=== PATIENT | male | born 1960 | race Caucasian/White ===

== ENCOUNTER 2017-01-24 09:18 | Inpatient (IN) | payer BC ==
[2017-01-24] MEDS ORDERED: Sodium Chloride 0.9% 1,000 ML IV ONE (09:44)
[2017-01-24] MEDS ORDERED: Morphine 2 MG/ML Syringe IVPUSH ONE (09:44)
[2017-01-24] MEDS ORDERED: Sodium Chloride 0.9% 2.5 ML Syringe FLUSH PRN (09:44)
[2017-01-24] MEDS ORDERED: Sodium Chloride 0.9% 10 ML Syringe FLUSH PRN (09:44)
[2017-01-24] MEDS ORDERED: Ondansetron 4 MG/2 ML SDV IVPUSH ONE (09:44)
--- NOTE | 2017-01-24 09:48 | EDM.PDOC ---
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 The patient states he has had 2-5 stools over the last 2 days which are soft and mushy but not watery and they're not black or bloody. The patient says that his pain is crampy in character and is more at the local area but does radiate more to the right upper abdominal area. He's had no urinary complaints no fevers no chills no chest pain and no shortness of breath. He has had nausea and vomiting which started over the last 12-24 hours. Review of systems: As per history of present illness and below otherwise all systems reviewed and negative. Past medical history: As per history of present illness and as reviewed below otherwise noncontributory. Surgical history: As per history of present illness and as reviewed below otherwise noncontributory. Social history: No reported history of drug or alcohol abuse. Family history: As per history of present illness and as reviewed below otherwise noncontributory. Physical exam: General: Well-developed well-nourished male who is nontoxic and mildly over weight and vital signs of the note by me HEENT: Atraumatic, normocephalic, pupils reactive, negative for conjunctival pallor or scleral icterus, mucous membranes tacky, throat clear, neck supple, nontender, trachea midline. Lungs: Clear to auscultation, breath sounds equal bilaterally, chest nontender. Heart: S1S2, regular, negative for clicks, rubs, or JVD. Abdomen: Soft, nondistended, bowel sounds are slightly hypoactive, there is mild diffuse tenderness at the periumbilical area and in the surrounds but does not localize right or left high or low on my evaluation there is no rebound or guarding. There is a midline ventral hernia that is appreciated that is somewhat tender and firm. Negative for masses or hepatosplenomegaly. Negative for costovertebral tenderness. Genitourinary: Deferred. Rectal: Deferred. Extremities: Atraumatic, negative for cords or calf pain. Neurovascular unremarkable. Neuro: Awake, alert, oriented. Cranial nerves II through XII unremarkable. Cerebellum unremarkable. Motor and sensory unremarkable throughout. Exam nonfocal. Diagnostics: CBC CMP amylase lipase lactic acid UA and CT scan of the abdomen and pelvis Therapeutics: IV fluids morphine Zofran Is noted the patient refused the morphine for pain and says that the pain is tolerable I discussed all testing results with the patient and the plan for admission for bowel rest for a partial small bowel obstruction. I discussed the case with Dr. Bee our surgeon as well as Dr. Roblero at 12:[address] Roblero accepts the patient for inpatient admission and Dr. Bee will be available as needed Impression: small bowel obstruction Definitive disposition and diagnosis as appropriate pending reevaluation and review of above. Abdominal Pain Score (Numeric/FACES): 5 - Related Data Allergies Allergy/AdvReac Type Severity Reaction Status Date / Time lisinopril Allergy Numbness Verified 01/24/17 10:04 Home Meds: Home Meds Levothyroxine 112 mcg PO ACBRK 03/16/14 [History] Losartan/Hydrochlorothiazide [Losartan-HCTZ 50-12.5 MG] 1 tab PO DAILY 02/25/15 [History] Omeprazole 20 mg PO DAILY 07/16/16 [History] Potassium Chloride [Potassium Chloride] 1 dose PO DAILY 07/16/16 [History] Iron Polysaccharide Complex [Ferric X-150] 1 tab PO DAILY 01/24/17 [History] Sucralfate 1 gm PO DAILY 01/24/17 [History] Past Medical History Cardiovascular History: Reports: Hypertension Gastrointestinal History: Reports: Cholelithiasis, Gastritis, GERD, Other (see below) Other Gastrointestinal History: Mcnamara's esophagus - Past Surgical History HEENT Surgical History: Reports: Tonsillectomy GI Surgical History: Reports: Cholecystectomy, Farooq fundoplication, Other ( see below) Other GI Surgeries/Procedures: Bile Duct Reconstruction Social & Family History - Family History Family Medical History: Noncontributory - Tobacco Use Smoking Status *Q: Never Smoker Second Hand Smoke Exposure: No - Alcohol Use Days Per Week of Alcohol Use: 0 - Recreational Drug Use Recreational Drug Use: No ED ROS GENERAL - Review of Systems Review Of Systems: ROS reveals no pertinent complaints other than HPI. ED EXAM, GENERAL - Physical Exam Exam: See Below (See dictation) Course - Vital Signs Last Recorded V/S: Last Vital Signs Temp 36.1 C 01/24/17 09:27 Pulse 110 H 01/24/17 09:27 Resp 16 01/24/17 09:27 BP 145/96 H 01/24/17 09:27 Pulse Ox 98 01/24/17 09:27 - Orders/Labs/Meds Orders: Active Orders 24 hr Category Date Time Status Patient Status [ADT] Stat ADT 01/24/17 12:11 Ordered Abdomen Pelvis w Cont [CT] Stat Exams 01/24/17 09:44 Taken Dextrose 5%-1/2 Normal Saline @ 150 MLS/HR(1000ml) Med 01/24/17 12:15 Ordered Dextrose 5%-0.45% NaCl [Dextrose 5%-1/2 NS] 1,000 ml IV ASDIRECTED Sodium Chloride 0.9% [Saline Flush] Med 01/24/17 09:44 Active 10 ml FLUSH ASDIRECTED PRN Sodium Chloride 0.9% [Saline Flush] Med 01/24/17 09:44 Active 2.5 ml FLUSH ASDIRECTED PRN Saline Lock Insert [OM.PC] Stat Oth 01/24/17 09:43 Ordered Medication Orders Sodium Chloride (Saline Flush) 10 ml FLUSH ASDIRECTED PRN PRN Reason: Keep Vein Open Last Admin: 01/24/17 09:56 Dose: 10 ml Sodium Chloride (Saline Flush) 2.5 ml FLUSH ASDIRECTED PRN PRN Reason: Keep Vein Open Last Admin: 01/24/17 09:56 Dose: 2.5 ml Labs: Laboratory Tests 01/24/17 01/24/17 01/24/17 Range/Units 10:09 10:09 10:09 WBC 13.64 H (4.0-11.0) K/uL RBC 5.70 (4.50-5.90) M/uL Hgb 14.4 (13.0-17.0) g/dL Hct 44.9 (38.0-50.0) % MCV 78.8 L (80.0-98.0) fL MCH 25.3 L (27.0-32.0) pg MCHC 32.1 (31.0-37.0) g/dL RDW Std Deviation 42.6 (28.0-62.0) fl RDW Coeff of Matthieu 15 (11.0-15.0) % Plt Count 297 (150-400) K/uL MPV 9.60 (7.40-12.00) fL Neut % (Auto) 90.7 H (48.0-80.0) % Lymph % (Auto) 4.5 L (16.0-40.0) % Ector % (Auto) 4.5 (0.0-15.0) % Eos % (Auto) 0.1 (0.0-7.0) % Baso % (Auto) 0.2 (0.0-1.5) % Neut # 12.4 H (1.4-5.7) K/uL Lymph # 0.6 (0.6-2.4) K/uL Ector # 0.6 (0.0-0.8) K/uL Eos # 0.0 (0.0-0.7) K/uL Baso # 0.0 (0.0-0.1) K/uL Nucleated RBC % 0.0 /100WBC Nucleated RBCs # 0 K/uL Lactate 1.7 (0.20-2.00) mmol/L Sodium 143 (136-146) mmol/L Potassium 4.0 (3.5-5.1) mmol/L Chloride 109 (98-110) mmol/L Carbon Dioxide 25 (21-31) mmol/L BUN 16 (6.0-23.0) mg/dL Creatinine 0.9 (0.6-1.5) mg/dL Est Cr Clr Drug Dosing 83.69 mL/min Estimated GFR (MDRD) > 60.0 ml/min Glucose 117 H (60-110) mg/dL Calcium 9.6 (8.8-10.8) mg/dL Total Bilirubin 1.0 (0.1-1.5) mg/dL AST 34 (5-40) IU/L ALT 59 H (8-54) IU/L Alkaline Phosphatase 165 H (40-150) Total Protein 7.9 (6.0-8.0) g/dL Albumin 4.3 (3.5-5.0) g/dL Globulin 3.6 H (2.0-3.5) g/dL Albumin/Globulin Ratio 1.2 L (1.3-2.8) Amylase 26 (10-90) U/L Lipase 21 (7-80) U/L Urine Color Urine Appearance Urine pH (5.0-8.0) Ur Specific Gardner (1.001-1.035) Urine Protein (NEGATIVE) mg/dL Urine Glucose (UA) (NEGATIVE) mg/dL Urine Ketones (NEGATIVE) mg/dL Urine Occult Blood (NEGATIVE) Urine Nitrite (NEGATIVE) Urine Bilirubin (NEGATIVE) Urine Urobilinogen (<2.0) EU/dL Ur Leukocyte Esterase (NEGATIVE) Urine RBC (0-2/HPF) Urine WBC (0-5/HPF) Ur Epithelial Cells (NONE-FEW) Urine Bacteria (NEGATIVE) 01/24/17 Range/Units 11:20 WBC (4.0-11.0) K/uL RBC (4.50-5.90) M/uL Hgb (13.0-17.0) g/dL Hct (38.0-50.0) % MCV (80.0-98.0) fL MCH (27.0-32.0) pg MCHC (31.0-37.0) g/dL RDW Std Deviation (28.0-62.0) fl RDW Coeff of Matthieu (11.0-15.0) % Plt Count (150-400) K/uL MPV (7.40-12.00) fL Neut % (Auto) (48.0-80.0) % Lymph % (Auto) (16.0-40.0) % Ector % (Auto) (0.0-15.0) % Eos % (Auto) (0.0-7.0) % Baso % (Auto) (0.0-1.5) % Neut # (1.4-5.7) K/uL Lymph # (0.6-2.4) K/uL Ector # (0.0-0.8) K/uL Eos # (0.0-0.7) K/uL Baso # (0.0-0.1) K/uL Nucleated RBC % /100WBC Nucleated RBCs # K/uL Lactate (0.20-2.00) mmol/L Sodium (136-146) mmol/L Potassium (3.5-5.1) mmol/L Chloride (98-110) mmol/L Carbon Dioxide (21-31) mmol/L BUN (6.0-23.0) mg/dL Creatinine (0.6-1.5) mg/dL Est Cr Clr Drug Dosing mL/min Estimated GFR (MDRD) ml/min Glucose (60-110) mg/dL Calcium (8.8-10.8) mg/dL Total Bilirubin (0.1-1.5) mg/dL AST (5-40) IU/L ALT (8-54) IU/L Alkaline Phosphatase (40-150) Total Protein (6.0-8.0) g/dL Albumin (3.5-5.0) g/dL Globulin (2.0-3.5) g/dL Albumin/Globulin Ratio (1.3-2.8) Amylase (10-90) U/L Lipase (7-80) U/L Urine Color YELLOW Urine Appearance CLEAR Urine pH 6.0 (5.0-8.0) Ur Specific Gardner <= 1.005 (1.001-1.035) Urine Protein NEGATIVE (NEGATIVE) mg/dL Urine Glucose (UA) NEGATIVE (NEGATIVE) mg/dL Urine Ketones NEGATIVE (NEGATIVE) mg/dL Urine Occult Blood NEGATIVE (NEGATIVE) Urine Nitrite NEGATIVE (NEGATIVE) Urine Bilirubin NEGATIVE (NEGATIVE) Urine Urobilinogen 0.2 (<2.0) EU/dL Ur Leukocyte Esterase NEGATIVE (NEGATIVE) Urine RBC NONE SEEN (0-2/HPF) Urine WBC 0-1 (0-5/HPF) Ur Epithelial Cells RARE (NONE-FEW) Urine Bacteria RARE (NEGATIVE) Meds: Medications Generic Name Dose Route Start Last Admin Trade Name Freq PRN Reason Stop Dose Admin Sodium Chloride 10 ml 01/24/17 09:44 01/24/17 09:56 Saline Flush FLUSH 10 ml ASDIRECTED PRN Administration Keep Vein Open Sodium Chloride 2.5 ml 01/24/17 09:44 01/24/17 09:56 Saline Flush FLUSH 2.5 ml ASDIRECTED PRN Administration Keep Vein Open Discontinued Medications Generic Name Dose Route Start Last Admin Trade Name Freq PRN Reason Stop Dose Admin Sodium Chloride 1,000 mls @ 999 mls/hr 01/24/17 09:44 01/24/17 09:56 Normal Saline IV 01/24/17 10:44 999 mls/hr STAT ONE Administration Iopamidol 100 ml 01/24/17 11:12 01/24/17 11:14 Isovue-370 (76%) IVPUSH 01/24/17 11:13 100 ml ONETIME STA Administration Morphine Sulfate 4 mg 01/24/17 09:44 01/24/17 09:56 Morphine IVPUSH 01/24/17 09:45 Not Given ONETIME ONE Ondansetron HCl 4 mg 01/24/17 09:44 01/24/17 09:56 Zofran IVPUSH 01/24/17 09:45 4 mg ONETIME ONE Administration Departure - Departure Time of Disposition: 12:14 Disposition: Admitted As Inpatient 67 Condition: good Clinical Impression: Small bowel obstruction Forms: ED Department Discharge - My Orders Last 24 Hours: My Active Orders 01/24/17 09:43 Saline Lock Insert [OM.PC] Stat 01/24/17 09:44 Abdomen Pelvis w Cont [CT] Stat Sodium Chloride 0.9% [Saline Flush] 10 ml FLUSH ASDIRECTED PRN Sodium Chloride 0.9% [Saline Flush] 2.5 ml FLUSH ASDIRECTED PRN 01/24/17 12:11 Patient Status [ADT] Stat 01/24/17 12:15 Dextrose 5%-1/2 Normal Saline @ 150 MLS/HR(1000ml) Dextrose 5%-0.45% NaCl [ Dextrose 5%-1/2 NS] 1,000 ml IV ASDIRECTED - Assessment/Plan Last 24 Hours: My Active Orders 01/24/17 09:43 Saline Lock Insert [OM.PC] Stat 01/24/17 09:44 Abdomen Pelvis w Cont [CT] Stat Sodium Chloride 0.9% [Saline Flush] 10 ml FLUSH ASDIRECTED PRN Sodium Chloride 0.9% [Saline Flush] 2.5 ml FLUSH ASDIRECTED PRN 01/24/17 12:11 Patient Status [ADT] Stat 01/24/17 12:15 Dextrose 5%-1/2 Normal Saline @ 150 MLS/HR(1000ml) Dextrose 5%-0.45% NaCl [ Dextrose 5%-1/2 NS] 1,000 ml IV ASDIRECTED
[2017-01-24 10:41] LABS: CHLORIDE,CL 109 mmol/L (98-110); SODIUM,NA 143 mmol/L (136-146)
[2017-01-24] MEDS ORDERED: Iopamidol 755 Mg/ML 100 ML Bottle IVPUSH STA (11:12)
[2017-01-24] MEDS ORDERED: Dextrose 5%-0.45% NaCl 1,000 ML IV SCH (12:15)
[2017-01-24] MEDS ORDERED: Promethazine 25 MG/ML SDV IM PRN (13:24)
[2017-01-24] MEDS ORDERED: Ondansetron 4 MG/2 ML SDV IVPUSH PRN (13:24)
--- NOTE | 2017-01-24 13:26 | PCM.CONS ---
H&P History of Present Illness - General Date of Service: 01/24/17 Admit Problem/Dx: Partial small bowel obstruction Source of Information: Patient History Limitations: Reports: No limitations - History of Present Illness Initial Comments - Free Text/Narative: Patient is a 56 yo male who presents with nausea and vomiting associated wtih abdominal pain over the last day. His past surgical history is significant for a common bile duct injury s/p hepaticojejunostomy and Barretts esophagus s/p mitchell. He has been having intermittent bouts of "stomach issues" since November which he felt were due to viral illness. He has never had the symptoms he has today. He was out caring for calves when he started having nausea, sharp generalized abdominal pain, bloating, diarrhea and vomiting. He threw up three times and the last episode was bilious. He denies fevers, chills, or any abdominal pain at this point in time. He presented to the ED. A CT of the abdomen was performed that showed a small bowel obstruction with a transition point in the mid-/distal small bowel. He has a small incisional hernia as well along the superior ventral midline that contains fat. He states that his pain is not located there. Abdominal Pain Score (Numeric/FACES): 5 - Related Data Allergies/Adverse Reactions: Allergies Allergy/AdvReac Type Severity Reaction Status Date / Time lisinopril Allergy Numbness Verified 01/24/17 10:04 Home Medications: Home Meds Levothyroxine 112 mcg PO ACBRK 03/16/14 [History] Losartan/Hydrochlorothiazide [Losartan-HCTZ 50-12.5 MG] 1 tab PO DAILY 02/25/15 [History] Omeprazole 20 mg PO DAILY 07/16/16 [History] Potassium Chloride [Potassium Chloride] 1 dose PO DAILY 07/16/16 [History] Iron Polysaccharide Complex [Ferric X-150] 1 tab PO DAILY 01/24/17 [History] Sucralfate 1 gm PO DAILY 01/24/17 [History] Past Medical History - Past Health History Medical/Surgical History: Denies Medical/Surgical History (Hypothyroidism, HTN. Surgical history as noted in HPI.) HEENT History: Reports: None Cardiovascular History: Reports: Hypertension Respiratory History: Reports: None Gastrointestinal History: Reports: Cholelithiasis, Gastritis, GERD, Other (see below) Other Gastrointestinal History: Mcnamara's esophagus Genitourinary History: Reports: None Musculoskeletal History: Reports: None Neurological History: Reports: None Psychiatric History: Reports: None Endocrine/Metabolic History: Reports: None Hematologic History: Reports: None Immunologic History: Reports: None Oncologic (Cancer) History: Reports: None Dermatologic History: Reports: None - Infectious Disease History Infectious Disease History: Reports: None - Past Surgical History HEENT Surgical History: Reports: Tonsillectomy GI Surgical History: Reports: Cholecystectomy, Mitchell fundoplication, Other ( see below) Other GI Surgeries/Procedures: Bile Duct Reconstruction Social & Family History - Family History Family Medical History: Noncontributory - Tobacco Use Smoking Status *Q: Never Smoker Second Hand Smoke Exposure: No - Caffeine Use Caffeine Use: Reports: Coffee - Alcohol Use Days Per Week of Alcohol Use: 0 - Recreational Drug Use Recreational Drug Use: No H&P Review of Systems - Review of Systems: Review Of Systems: ROS reveals no pertinent complaints other than HPI. Exam - Exam Exam: See Below - Vital Signs Vital Signs: Last Vital Signs Temp 36.1 C 01/24/17 09:27 Pulse 101 H 01/24/17 12:23 Resp 18 01/24/17 12:23 BP 144/90 H 01/24/17 12:23 Pulse Ox 97 01/24/17 12:23 Weight: 106.6 kg - Exam General: alert, oriented, cooperative HEENT: Conjunctiva clear, Mucosa moist & pink Lungs: Normal respiratory effort Cardiovascular: regular rate Abdomen: soft, other (nontender, mild distension, small incisional hernia superior from the umbilicus ) - Patient Data Result Diagrams: 01/24/17 10:09 01/24/17 10:09 Consult PN Assessment/Plan Procedures: Procedures ASSAY OF FERRITIN (09/09/16) ASSAY OF FREE TESTOSTERONE (09/09/16) ASSAY OF LACTIC ACID (02/25/15) ASSAY OF MAGNESIUM (07/16/16) ASSAY OF TOTAL TESTOSTERONE (09/09/16) ASSAY OF TROPONIN QUANT (07/16/16) ASSAY THYROID STIM HORMONE (08/08/16) BLOOD CULTURE FOR BACTERIA (02/25/15) CHEST X-RAY 1 VIEW FRONTAL (07/16/16) COMPLETE CBC AUTOMATED (12/22/16) COMPLETE CBC W/AUTO DIFF WBC (08/08/16) COMPREHEN METABOLIC PANEL (08/08/16) CREATINE MB FRACTION (07/16/16) CULTURE SCREEN ONLY (02/25/15) ECHO EXAM OF ABDOMEN (06/04/15) ELECTROCARDIOGRAM TRACING (07/16/16) EMERGENCY DEPT VISIT (07/16/16) EMERGENCY DEPT VISIT (02/25/15) EMERGENCY DEPT VISIT (03/16/14) EMERGENCY DEPT VISIT (03/16/14) HYDRATE IV INFUSION ADD-ON (02/25/15) HYDRATION IV INFUSION INIT (02/25/15) INFLUENZA ASSAY W/OPTIC (02/25/15) INTRINSIC FACTOR ANTIBODY (07/17/16) IRON BINDING TEST (12/22/16) LIPID PANEL (08/08/16) METABOLIC PANEL TOTAL CA (02/25/15) OCCULT BLD FECES 1-3 TESTS (06/03/16) ORGANIC ACID SINGLE QUANT (07/18/16) PROTHROMBIN TIME (07/16/16) ROUTINE VENIPUNCTURE (12/22/16) STREP A AG IA (02/25/15) THER/PROPH/DIAG IV INF INIT (09/12/16) URINALYSIS AUTO W/SCOPE (02/25/15) VITAMIN B-12 (07/17/16) (1) Small bowel obstruction SNOMED Code(s): 574083491 Code(s): K56.69 - OTHER INTESTINAL OBSTRUCTION Current Visit: Yes Problem List Initiated/Reviewed/Updated: Yes Plan: I explained to the patient that he has a partial small bowel obstruction. I reviewed the CT myself and did not see any sign of a closed loop bowel obstruction which can happen s/p hepaticojejunostomy. He appears non-toxic and is not actively vomiting. I explained that this is most likely due to surgical scarring however there is always a chance that he could have anastomotic stenosis secondary to scarring at the J-J anastamosis. Should he develop more nausea/vomiting he will need to have an NG tube placed. If he develops worsening abdominal pain, fever, or peritoneal signs he would need to be transfered for emergent surgical management given his altered anatomy and the need for greater resources. Will continue to follow the patient. Please call with any questions or concerns.
--- NOTE | 2017-01-24 13:36 | PCM.HP ---
H&P History of Present Illness - General Admit Problem/Dx: Partial small bowel obstruction - History of Present Illness Initial Comments - Free Text/Narative: 56 yo male with pmh of hypertension, Hypothyroidsim, iron dificiency anemia, Farooq procedure and cholecystectomy complicated by CBD tear with repair. He presents with one week history of mild crampy abdominal pain. Last night the pain was severe with nausea and vomiting. He had two loose stools last night but has not pass any gas this monring. He was evaluated in the ED. CT scan of abdomen reported small bowel obstruction with a transition point in the loop of mid to distal small bowel. Abdominal Pain Score (Numeric/FACES): 5 - Related Data Allergies/Adverse Reactions: Allergies Allergy/AdvReac Type Severity Reaction Status Date / Time lisinopril Allergy Numbness Verified 01/24/17 10:04 Home Medications: Home Meds Levothyroxine 112 mcg PO ACBRK 03/16/14 [History] Losartan/Hydrochlorothiazide [Losartan-HCTZ 50-12.5 MG] 1 tab PO DAILY 02/25/15 [History] Omeprazole 20 mg PO DAILY 07/16/16 [History] Potassium Chloride [Potassium Chloride] 1 dose PO DAILY 07/16/16 [History] Iron Polysaccharide Complex [Ferric X-150] 1 tab PO DAILY 01/24/17 [History] Sucralfate 1 gm PO DAILY 01/24/17 [History] Past Medical History HEENT History: Reports: None Cardiovascular History: Reports: Hypertension Respiratory History: Reports: None Gastrointestinal History: Reports: Cholelithiasis, Gastritis, GERD, Other (see below) Other Gastrointestinal History: Mcnamara's esophagus Genitourinary History: Reports: None Musculoskeletal History: Reports: None Neurological History: Reports: None Psychiatric History: Reports: None Endocrine/Metabolic History: Reports: None Hematologic History: Reports: None Immunologic History: Reports: None Oncologic (Cancer) History: Reports: None Dermatologic History: Reports: None - Infectious Disease History Infectious Disease History: Reports: None - Past Surgical History HEENT Surgical History: Reports: Tonsillectomy GI Surgical History: Reports: Cholecystectomy, Farooq fundoplication, Other ( see below) Other GI Surgeries/Procedures: Bile Duct Reconstruction Social & Family History - Family History Family Medical History: Noncontributory - Tobacco Use Smoking Status *Q: Never Smoker Second Hand Smoke Exposure: No - Caffeine Use Caffeine Use: Reports: Coffee - Alcohol Use Days Per Week of Alcohol Use: 0 - Recreational Drug Use Recreational Drug Use: No H&P Review of Systems - Review of Systems: Review Of Systems: See Below General: Reports: no symptoms HEENT: Reports: no symptoms Pulmonary: Reports: No Symptoms Cardiovascular: Reports: no symptoms Gastrointestinal: Reports: Abdominal pain Genitourinary: Reports: no symptoms Musculoskeletal: Reports: no symptoms Skin: Reports: no symptoms Psychiatric: Reports: no symptoms Neurological: Reports: No Symptoms Hematologic/Lymphatic: Reports: no symptoms Immunologic: Reports: no symptoms Exam - Exam Exam: See Below - Vital Signs Vital Signs: Last Vital Signs Temp 36.1 C 01/24/17 09:27 Pulse 101 H 01/24/17 12:23 Resp 18 01/24/17 12:23 BP 144/90 H 01/24/17 12:23 Pulse Ox 97 01/24/17 12:23 Weight: 106.6 kg - Exam General: alert, oriented, 4 Neck: supple, trachea midline, 2 Lungs: Clear to auscultation, Normal respiratory effort Cardiovascular: regular rate, regular rhythm Abdomen: normal bowel sounds, soft. No: distention, rebound Extremities: normal inspection - Patient Data Result Diagrams: 01/24/17 10:09 01/24/17 10:09 *Q Meaningful Use (ADM) - VTE *Q VTE Criteria *Q: - Stroke *Q Stroke Criteria *Q: - AMI *Q AMI Criteria *Q: Problem List Initiated/Reviewed/Updated: Yes Orders Last 24hrs: Active Orders 24 hr Category Date Time Status Antiembolic Devices [RC] PER UNIT ROUTINE Care 01/24/17 13:28 Ordered Intake and Output [RC] QSHIFT Care 01/24/17 13:25 Ordered Notify Provider Consults [RC] ASDIRECTED Care 01/24/17 12:44 Active Oxygen Therapy [RC] PRN Care 01/24/17 13:24 Ordered Up ad Juli [RC] ASDIRECTED Care 01/24/17 13:24 Ordered VTE/DVT Education [RC] PER UNIT ROUTINE Care 01/24/17 13:24 Ordered Vital Signs [RC] Q4H Care 01/24/17 13:24 Ordered Consult to Physician [CONS] Stat Cons 01/24/17 12:43 Active Nothing per Oral Now Diet [DIET] Diet 01/24/17 Breakfast Ordered CBC WITH AUTO DIFF [HEME] AM Lab 01/25/17 05:11 Ordered CBC WITH AUTO DIFF [HEME] AM Lab 01/26/17 05:11 Ordered COMPREHENSIVE METABOLIC PN,CMP [CHEM] AM Lab 01/25/17 05:11 Ordered COMPREHENSIVE METABOLIC PN,CMP [CHEM] AM Lab 01/26/17 05:11 Ordered Heparin Sodium Med 01/24/17 13:30 Ordered 5,000 units SUBCUT Q8H Ondansetron [Zofran] Med 01/24/17 13:24 Ordered 4 mg IVPUSH Q4H PRN Promethazine [Phenergan] Med 01/24/17 13:24 Ordered 12.5 mg IM Q4H PRN Sodium Chloride 0.9% @ 125 MLS/HR (1000ml) Med 01/24/17 13:30 Ordered Sodium Chloride 0.9% [Normal Saline] 1,000 ml IV ASDIRECTED Sequential Compression Device [OM.PC] Per Unit Routine Oth 01/24/17 13:25 Ordered Resuscitation Status Routine Resus Stat 01/24/17 13:24 Ordered Medication Orders Heparin Sodium (Porcine) (Heparin Sodium) 5,000 units SUBCUT Q8H JENS Sodium Chloride (Normal Saline) 1,000 mls @ 125 mls/hr IV ASDIRECTED JENS Ondansetron HCl (Zofran) 4 mg IVPUSH Q4H PRN PRN Reason: Nausea Promethazine HCl (Phenergan) 12.5 mg IM Q4H PRN PRN Reason: Nausea/Vomiting Sodium Chloride (Saline Flush) 10 ml FLUSH ASDIRECTED PRN PRN Reason: Keep Vein Open Last Admin: 01/24/17 09:56 Dose: 10 ml Sodium Chloride (Saline Flush) 2.5 ml FLUSH ASDIRECTED PRN PRN Reason: Keep Vein Open Last Admin: 01/24/17 09:56 Dose: 2.5 ml Assessment/Plan Comment:: 56 yo male admitted with small bowel obstruction. Dr. Bee consulted. We will continue bowel rest, IV fluids and IV morphine for pain control.
[2017-01-24] MEDS ORDERED: Morphine 2 MG/ML Syringe IVPUSH PRN (13:40)
[2017-01-24] MEDS: Heparin Sodium 5,000 Units/ML Vial SUBCUT SCH ×2 (15:27→20:58)
[2017-01-24] MEDS: Sodium Chloride 0.9% 1,000 ML IV SCH (19:24)
[2017-01-25] MEDS: Sodium Chloride 0.9% 1,000 ML IV SCH ×3 (03:06→19:09)
[2017-01-25] MEDS: Heparin Sodium 5,000 Units/ML Vial SUBCUT SCH ×3 (05:09→20:33)
[2017-01-25 06:59] LABS: CHLORIDE,CL 110 mmol/L (98-110); SODIUM,NA 143 mmol/L (136-146)
--- NOTE | 2017-01-25 09:04 | PCM.SN ---
- Free Text/Narrative Note: Patient is a 56 yo male admited yesterday for partial small bowel obstruction. He has not had an NG placed during this admission. He has not vomited since admission. He had one episode of nausea, but had a regular appearing bowel movement this morning. Vitals are stable and his WBC is normal this morning. I recommend advancing his diet to clears, then slowly advancing as tolerated. He can follow up with me in clinic in 2 weeks and would recommend an outpatient small bowel follow through study. This can be ordered at discharge or I will order it when he sees me in clinic.
--- NOTE | 2017-01-25 12:10 | PCM.PN ---
- Review of Systems Systems Review Comment:: abdominal pain improving, had small stool this morning. - Patient Data Vitals - most recent: Last Vital Signs Temp 36.3 C 01/25/17 07:38 Pulse 100 01/25/17 07:38 Resp 20 01/25/17 07:38 BP 129/81 01/25/17 07:38 Pulse Ox 94 L 01/25/17 07:38 Weight - most recent: 106.6 kg I&O - last 24 hours: Intake & Output 01/24/17 01/25/17 01/25/17 22:59 06:59 14:59 Intake Total 676 1000 Output Total 300 450 Balance 376 550 Lab Results last 24 hrs: Laboratory Results - last 24 hr 01/25/17 01/25/17 Range/Units 05:50 05:50 WBC 9.71 (4.0-11.0) K/uL RBC 5.43 (4.50-5.90) M/uL Hgb 13.7 (13.0-17.0) g/dL Hct 43.3 (38.0-50.0) % MCV 79.7 L (80.0-98.0) fL MCH 25.2 L (27.0-32.0) pg MCHC 31.6 (31.0-37.0) g/dL RDW Std Deviation 44.5 (28.0-62.0) fl RDW Coeff of Matthieu 15 (11.0-15.0) % Plt Count 284 (150-400) K/uL MPV 9.40 (7.40-12.00) fL Neut % (Auto) 76.1 (48.0-80.0) % Lymph % (Auto) 15.0 L (16.0-40.0) % [place] % (Auto) 8.5 (0.0-15.0) % Eos % (Auto) 0.2 (0.0-7.0) % Baso % (Auto) 0.2 (0.0-1.5) % Neut # 7.4 H (1.4-5.7) K/uL Lymph # 1.5 (0.6-2.4) K/uL Deuel # 0.8 (0.0-0.8) K/uL Eos # 0.0 (0.0-0.7) K/uL Baso # 0.0 (0.0-0.1) K/uL Nucleated RBC % 0.0 /100WBC Nucleated RBCs # 0 K/uL Sodium 143 (136-146) mmol/L Potassium 3.6 (3.5-5.1) mmol/L Chloride 110 (98-110) mmol/L Carbon Dioxide 23 (21-31) mmol/L BUN 14 (6.0-23.0) mg/dL Creatinine 0.9 (0.6-1.5) mg/dL Est Cr Clr Drug Dosing 95.76 mL/min Estimated GFR (MDRD) > 60.0 ml/min Glucose 105 (60-110) mg/dL Calcium 8.7 L (8.8-10.8) mg/dL Total Bilirubin 1.6 H (0.1-1.5) mg/dL AST 31 (5-40) IU/L ALT 50 (8-54) IU/L Alkaline Phosphatase 140 (40-150) Total Protein 6.3 (6.0-8.0) g/dL Albumin 3.6 (3.5-5.0) g/dL Globulin 2.7 (2.0-3.5) g/dL Albumin/Globulin Ratio 1.3 (1.3-2.8) Med Orders - Current: Current Medications Heparin Sodium (Porcine) (Heparin Sodium) 5,000 units SUBCUT Q8H [facility] Last Admin: 01/25/17 05:09 Dose: 5,000 units Sodium Chloride (Normal Saline) 1,000 mls @ 125 mls/hr IV ASDIRECTED [facility] Last Admin: 01/25/17 11:08 Dose: 125 mls/hr Morphine Sulfate (Morphine) 2 mg IVPUSH Q2H PRN PRN Reason: Pain Ondansetron HCl (Zofran) 4 mg IVPUSH Q4H PRN PRN Reason: Nausea Promethazine HCl (Phenergan) 12.5 mg IM Q4H PRN PRN Reason: Nausea/Vomiting Sodium Chloride (Saline Flush) 10 ml FLUSH ASDIRECTED PRN PRN Reason: Keep Vein Open Last Admin: 01/24/17 09:56 Dose: 10 ml Sodium Chloride (Saline Flush) 2.5 ml FLUSH ASDIRECTED PRN PRN Reason: Keep Vein Open Last Admin: 01/24/17 09:56 Dose: 2.5 ml Discontinued Medications Sodium Chloride (Normal Saline) 1,000 mls @ 999 mls/hr IV STAT ONE Stop: 01/24/17 10:44 Last Admin: 01/24/17 09:56 Dose: 999 mls/hr Dextrose/Sodium Chloride (Dextrose 5%-1/2 Ns) 1,000 mls @ 150 mls/hr IV ASDIRECTED [facility] Last Admin: 01/24/17 12:18 Dose: 150 mls/hr Iopamidol (Isovue-370 (76%)) 100 ml IVPUSH ONETIME STA Stop: 01/24/17 11:13 Last Admin: 01/24/17 11:14 Dose: 100 ml Morphine Sulfate (Morphine) 4 mg IVPUSH ONETIME ONE Stop: 01/24/17 09:45 Last Admin: 01/24/17 09:56 Dose: Not Given Ondansetron HCl (Zofran) 4 mg IVPUSH ONETIME ONE Stop: 01/24/17 09:45 Last Admin: 01/24/17 09:56 Dose: 4 mg - Exam General: alert, oriented Lungs: Clear to auscultation, Normal respiratory effort Cardiovascular: Regular Rate, Regular Rhythm Abdomen: bowel sounds present, soft, no tenderness, no distension Extremities: no edema Skin: warm, dry, intact Neurological: no new focal deficit - Problem List Review Problem List Initiated/Reviewed/Updated: Yes - My Orders Last 24 Hours: My Active Orders 01/24/17 13:24 Oxygen Therapy [RC] PRN Up ad Juli [RC] ASDIRECTED Vital Signs [RC] Q4H Ondansetron [Zofran] 4 mg IVPUSH Q4H PRN Promethazine [Phenergan] 12.5 mg IM Q4H PRN Resuscitation Status Routine 01/24/17 13:25 Intake and Output [RC] Q12H Sequential Compression Device [OM.PC] Per Unit Routine 01/24/17 13:28 Antiembolic Devices [RC] PER UNIT ROUTINE 01/24/17 13:30 Heparin Sodium 5,000 units SUBCUT Q8H Sodium Chloride 0.9% [Normal Saline] 1,000 ml IV ASDIRECTED 01/24/17 13:40 Morphine 2 mg IVPUSH Q2H PRN 01/25/17 Breakfast Clear Liquid Diet [DIET] 01/26/17 05:11 CBC WITH AUTO DIFF [HEME] AM COMPREHENSIVE METABOLIC PN,CMP [CHEM] AM - Plan Plan:: 56 yo male admitted with small bowel obstruction. Dr. Bee consulted. Will advance to clear liquids.
[2017-01-26] MEDS: Sodium Chloride 0.9% 1,000 ML IV SCH (03:14)
[2017-01-26 05:08] LABS: CHLORIDE,CL 113 mmol/L (98-110); SODIUM,NA 143 mmol/L (136-146)
[2017-01-26] MEDS: Heparin Sodium 5,000 Units/ML Vial SUBCUT SCH (05:44)
[2017-01-26] MEDS ORDERED: Potassium Chloride 20 MEQ Tab.ER PO ONE (07:48)
--- NOTE | 2017-01-26 08:56 | PCM.DCSUM1 ---
Discharge Summary - Hospital Course Brief History: This 56 year old male with pmh of hypertension, hypothyroidsim, iron dificiency anemia, Farooq procedure and cholecystectomy complicated by CBD tear with repair presented to the ED with one week history of mild crampy abdominal pain. Last night the pain was severe with nausea and vomiting. He had two loose stools last night but has not pass any gas this monring. In the ED , CT scan of abdomen reported small bowel obstruction with a transition point in the loop of mid to distal small bowel. He was admitted for a partial SBO Dr. Bee,General Surgery, consulted. - Discharge Data Discharge Date: 01/26/17 Discharge Disposition: Home, Self-Care 01 Condition: Good - Patient Summary/Data Consults: Consultations 01/24/17 12:43 Consult to Physician [CONS] Stat - Patient Instructions Diet: GI Soft/Low Residue/Low Fiber (X1-2 weeks, soft bland diet for 1 week then slowly return to regular diet) Activity: As Tolerated Showering/Bathing: March Shower Notify Provider of: Fever, Increased Pain, Swelling and Redness, Drainage, Nausea and/or Vomiting - Discharge Plan Home Medications: Home Meds Levothyroxine 112 mcg PO ACBRK 03/16/14 [History] Losartan/Hydrochlorothiazide [Losartan-HCTZ 50-12.5 MG] 1 tab PO DAILY 02/25/15 [History] Omeprazole 20 mg PO DAILY 07/16/16 [History] Potassium Chloride 1 dose PO DAILY 07/16/16 [History] Iron Polysaccharide Complex [Ferric X-150] 1 tab PO DAILY 01/24/17 [History] Sucralfate 1 gm PO DAILY 01/24/17 [History] Patient Handouts: Small Bowel Obstruction, [id number] Referrals: Autumn Bee MD [Physician] - 02/10/17 10:45 am PCP,Unknown [Ordering Only Provider] - (follow up with PCP in 1 week.) - Discharge Summary/Plan Comment DC Time >30 min.: No Discharge Summary/Plan Comment: Discharge Diagnoses SBO-resolved Iron deficiency anemia HTN Kt was admitted and treated with bowel rest, IV fluids and analgesia. After bowel rest x 1 day he started passing flatus and had a small BM. CL diet was started and advanced to regular. He tolerated diet well. He will be discharged today on soft/low fiber diet x 1-2 weeks slowly returning to regular diet. He is to follow up with PCP in 1 week to ensure he continues to improve and follow up with Dr. Bee in 2 weeks for small bowel follow through. He was encouraged to return to clinic or ED if concerns should arise. - General Info Date of Service: 01/26/17 Admission Dx/Problem (Free Text: Partial small bowel obstruction Subjective Update: Doing well this morning, passing flatus and had another small BM. Ate a regular diet for breakfast, so far no nausea or vomiting. He is very eager to be discharged home today. Functional Status: Reports: pain controlled, tolerating diet, ambulating, urinating - Review of Systems General: Reports: No Symptoms. Denies: Fever HEENT: Reports: no symptoms. Denies: sinus congestion, sore throat Pulmonary: Reports: no symptoms. Denies: shortness of breath, cough, sputum Cardiovascular: Reports: No Symptoms. Denies: Chest Pain, Palpitations, Edema Gastrointestinal: Reports: No symptoms, Flatus. Denies: Abdominal pain, Nausea , Vomiting Genitourinary: Reports: no symptoms Musculoskeletal: Reports: no symptoms Skin: Reports: no symptoms Neurological: Reports: No Symptoms Psychiatric: Reports: no symptoms - Patient Data Vitals - Most Recent: Last Vital Signs Temp 98.2 F 01/26/17 07:31 Pulse 80 01/26/17 07:31 Resp 20 01/26/17 07:31 BP 138/82 01/26/17 07:31 Pulse Ox 95 01/26/17 07:31 Weight - Most Recent: 106.6 kg I&O - Last 24 hours: Intake & Output 01/25/17 01/26/17 01/26/17 22:59 06:59 14:59 Intake Total 2405 1800 Output Total 525 600 Balance 1880 1200 Lab Results - Last 24 hrs: Laboratory Results - last 24 hr 01/26/17 01/26/17 Range/Units 04:26 04:26 WBC 6.24 (4.0-11.0) K/uL RBC 4.56 (4.50-5.90) M/uL Hgb 11.4 L (13.0-17.0) g/dL Hct 36.4 L (38.0-50.0) % MCV 79.8 L (80.0-98.0) fL MCH 25.0 L (27.0-32.0) pg MCHC 31.3 (31.0-37.0) g/dL RDW Std Deviation 44.0 (28.0-62.0) fl RDW Coeff of Matthieu 15 (11.0-15.0) % Plt Count 227 (150-400) K/uL MPV 9.30 (7.40-12.00) fL Neut % (Auto) 64.2 (48.0-80.0) % Lymph % (Auto) 22.4 (16.0-40.0) % [place] % (Auto) 10.1 (0.0-15.0) % Eos % (Auto) 2.7 (0.0-7.0) % Baso % (Auto) 0.6 (0.0-1.5) % Neut # 4.0 (1.4-5.7) K/uL Lymph # 1.4 (0.6-2.4) K/uL [place] # 0.6 (0.0-0.8) K/uL Eos # 0.2 (0.0-0.7) K/uL Baso # 0.0 (0.0-0.1) K/uL Nucleated RBC % 0.0 /100WBC Nucleated RBCs # 0 K/uL Sodium 143 (136-146) mmol/L Potassium 3.4 L (3.5-5.1) mmol/L Chloride 113 H (98-110) mmol/L Carbon Dioxide 22 (21-31) mmol/L BUN 11 (6.0-23.0) mg/dL Creatinine 0.8 (0.6-1.5) mg/dL Est Cr Clr Drug Dosing 107.73 mL/min Estimated GFR (MDRD) > 60.0 ml/min Glucose 79 (60-110) mg/dL Calcium 7.9 L (8.8-10.8) mg/dL Total Bilirubin 1.2 (0.1-1.5) mg/dL AST 22 (5-40) IU/L ALT 36 (8-54) IU/L Alkaline Phosphatase 115 (40-150) Total Protein 5.1 L (6.0-8.0) g/dL Albumin 3.1 L (3.5-5.0) g/dL Globulin 2.0 (2.0-3.5) g/dL Albumin/Globulin Ratio 1.6 (1.3-2.8) Med Orders - Current: Current Medications Heparin Sodium (Porcine) (Heparin Sodium) 5,000 units SUBCUT Q8H [facility] Last Admin: 01/26/17 05:44 Dose: 5,000 units Morphine Sulfate (Morphine) 2 mg IVPUSH Q2H PRN PRN Reason: Pain Ondansetron HCl (Zofran) 4 mg IVPUSH Q4H PRN PRN Reason: Nausea Promethazine HCl (Phenergan) 12.5 mg IM Q4H PRN PRN Reason: Nausea/Vomiting Sodium Chloride (Saline Flush) 10 ml FLUSH ASDIRECTED PRN PRN Reason: Keep Vein Open Last Admin: 01/24/17 09:56 Dose: 10 ml Sodium Chloride (Saline Flush) 2.5 ml FLUSH ASDIRECTED PRN PRN Reason: Keep Vein Open Last Admin: 01/24/17 09:56 Dose: 2.5 ml Discontinued Medications Sodium Chloride (Normal Saline) 1,000 mls @ 999 mls/hr IV STAT ONE Stop: 01/24/17 10:44 Last Admin: 01/24/17 09:56 Dose: 999 mls/hr Dextrose/Sodium Chloride (Dextrose 5%-1/2 Ns) 1,000 mls @ 150 mls/hr IV ASDIRECTED [facility] Last Admin: 01/24/17 12:18 Dose: 150 mls/hr Sodium Chloride (Normal Saline) 1,000 mls @ 125 mls/hr IV ASDIRECTED [facility] Last Admin: 01/26/17 03:14 Dose: 125 mls/hr Iopamidol (Isovue-370 (76%)) 100 ml IVPUSH ONETIME STA Stop: 01/24/17 11:13 Last Admin: 01/24/17 11:14 Dose: 100 ml Morphine Sulfate (Morphine) 4 mg IVPUSH ONETIME ONE Stop: 01/24/17 09:45 Last Admin: 01/24/17 09:56 Dose: Not Given Ondansetron HCl (Zofran) 4 mg IVPUSH ONETIME ONE Stop: 01/24/17 09:45 Last Admin: 01/24/17 09:56 Dose: 4 mg Potassium Chloride (Klor-Con M20) 40 meq PO ONETIME ONE Stop: 01/26/17 07:49 - Exam General: Reports: alert, oriented, cooperative Neck: Reports: supple Lungs: Reports: Clear to auscultation, Normal respiratory effort Cardiovascular: Reports: Regular Rate, Regular Rhythm Abdomen: Reports: bowel sounds present, soft, no tenderness, no distension Extremities: Reports: no edema, normal pulses Neurological: Reports: no new focal deficit Psy/Mental Status: Reports: alert, normal affect, normal mood *Q Meaningful Use (DIS) - VTE *Q VTE Criteria *Q: - Stroke *Q Stroke Criteria *Q: - AMI *Q AMI Criteria *Q:
[2017-01-26 11:27] VITALS: BP 136/84
--- NOTE | 2017-01-26 16:36 | CT ---
EXAM DATE: 01/24/17 PATIENT'S AGE: 56 Patient: MATEO PRICE Facility: [place], [place] Site . Site : [id number] Study: CT Abdomen/Pelvis w cont [id number]/[id number] 11:14:19 AM Ordering Physician: Alber Blanco Final Report: INDICATION: pt states abdominal pain, vomiting, lower back pain, soft stool since yesterday. also eval for abdominal wall hernia TECHNIQUE: CT scan of the abdomen and pelvis with 100 cc of Isovue-370 given intravenously. FINDINGS: The lung bases are unremarkable. Small hiatal hernia. Dystrophic calcifications in the posterior aspect of segment 7 of the liver. No other focal liver lesions identified. Choledochoenterostomy. Intrahepatic biliary air. No focal abnormalities identified in the visualized portions of the spleen, pancreas, adrenal glands, and kidneys. No hydronephrosis. No obstructing uroliths. Mild colonic diverticulosis with no evidence of diverticulitis. Dilated loops of proximal and mid small bowel with a transition point in the mid to distal small bowel best seen on image 113 of series 201. Normal appendix. No retroperitoneal or pelvic sidewall adenopathy. A few prominent central mesenteric lymph nodes. IMPRESSION: 1. Small-bowel obstruction with a transition point in a loop of mid to distal small bowel. 2. A few prominent central mesenteric lymph nodes which are a nonspecific finding or could be secondary to the small bowel obstruction. Dictated by Thomas Patel MD @ 01/24/2017 11:42:16 AM Dictated by: Thomas Patel MD @ 01/24/2017 11:42:28 (Electronic Signature) Report Signed by Proxy and Original Signed Document filed in the Medical Record. [facility]
== END 2017-01-26 11:37 | disposition home or self-care (01) | DRG 247 ==
LOC: MW.ED 09:18 → MW.MS 12:26
PROVIDERS: ADMIT Internal Medicine; ATTEND Internal Medicine
DX: K56.60 Unspecified intestinal obstruction (principal); I10 Essential (primary) hypertension; E03.9 Hypothyroidism, unspecified; D50.9 Iron deficiency anemia, unspecified; K21.9 Gastro-esophageal reflux disease without esophagitis; Z88.8 Allergy status to other drugs, medicaments and biological substances; Z79.899 Other long term (current) drug therapy
CPT/HCPCS: 36415; 74177; 74177-26; 80053; 81001; 82150; 83605; 83690; 85025; 96361; 96374; 99285; 99285-25; A9270-GY; J1644; J2405; J7040; J7042; Q9967

== ENCOUNTER → 2017-02-03 | Outpatient (CLI) | payer BC | LOC: MW.CHFP 10:54 | PROVIDERS: ATTEND Emergency Medicine | DX: D50.9 Iron deficiency anemia, unspecified (principal) | CPT/HCPCS: 36415; 85027 ==

== ENCOUNTER → 2017-03-17 | Outpatient (CLI) | payer BC | LOC: MW.CHFP 09:46 | PROVIDERS: ATTEND Emergency Medicine | DX: D50.9 Iron deficiency anemia, unspecified (principal) | CPT/HCPCS: 36415; 83550; 85027 ==

== ENCOUNTER 2025-02-28 09:05 | Day surgery (SDC) | payer BC ==
[~2025-02-28 09:05] MED LIST: Sodium Chloride 0.9% 10 ML Syringe FLUSH PRN; Sodium Chloride 0.9% 2.5 ML Syringe FLUSH PRN; Sodium Chloride 0.9% 20 ML SDV IV PRN
[2025-02-28] MEDS ORDERED: Propofol 200 MG/20 ML SDV ONE (10:22)
[2025-02-28] MEDS: Lactated Ringers 1,000 ML IV SCH (10:25)
[2025-02-28] MEDS ORDERED: Lidocaine 2% 5 ML SDV ONE (10:40)
[2025-02-28 13:17] VITALS: BP 116/78; PULSE 80
== END 2025-02-28 11:40 | disposition home or self-care (01) ==
LOC: MW.SDS 09:05
PROVIDERS: ATTEND Surgery
DX: K22.70 Barrett's esophagus without dysplasia (principal); K29.50 Unspecified chronic gastritis without bleeding; K44.9 Diaphragmatic hernia without obstruction or gangrene; K22.89 Other specified disease of esophagus; I10 Essential (primary) hypertension; E03.9 Hypothyroidism, unspecified; K21.9 Gastro-esophageal reflux disease without esophagitis; Z79.890 Hormone replacement therapy; Z79.899 Other long term (current) drug therapy
CPT/HCPCS: 43239; J2003; J2704; J7120; 00731